=== PATIENT | male | born 1970 | race Caucasian/White ===

== ENCOUNTER 2017-05-26 09:15 | Emergency (ER) | payer OTHER ==
[~2017-05-26] VITALS: Ht 167.6 cm; Wt 70.0 kg
[~2017-05-26 09:15] MED LIST: LEVE100018 PO
[2017-05-26 09:25] VITALS: Ht 167.6 cm; Wt 70.0 kg
--- NOTE | 2017-05-26 09:44 | RADRPT ---
PROCEDURE: Chest Radiograph. CLINICAL INDICATION: Chest pain TECHNIQUE: Single frontal chest radiograph. COMPARISON: None available FINDINGS: The cardiomediastinal silhouette is within normal limits. No infiltrate or effusion is seen. Th e bones are intact. IMPRESSION: 1. Unremarkable chest radiograph. RPTAT: KK .Toby Bello MD, MD Date Time Electronically viewed and signed by .Toby Bello MD, on 05/26/2017 09:44 .B/
--- NOTE | 2017-05-26 10:04 | ERD ---
ER Documentation Chief Complaint Date/Time DATE: 05/26/17 TIME: 10:01 Chief Complaint BIB AMBULANCE DUE TO ETOH INTOXICATION, PT [id number] HPI Patient is a 46-year-old male with seizures who presents altered. Please note the history and physical exam is limited secondary to the patient's alcohol intoxication. The patient was brought in by ambulance. He was in line to get food at a [facility] and they said that he was too drunk. He admits to drinking 40 ounce beers. Upon review of old medical records he has multiple visits to the ER for alcohol intoxication and seizures. He has no other complaints. ROS All systems reviewed and are negative except as per history of present illness. Medications Home Meds Reported Medications Levetiracetam* (Keppra*) 1,000 Mg Tablet, 1000 MG PO BID, TAB 11/13/14 Allergies Allergies: Coded Allergies: No Known Drug Allergy (Verified Allergy, Unknown, 11/13/14) PMhx/Soc History of Surgery: No Anesthesia Reaction: No Hx Neurological Disorder: Yes (SEIZURE) Hx Respiratory Disorders: No Hx Cardiac Disorders: No Hx Psychiatric Problems: No Hx Miscellaneous Medical Probl: Yes (ETOH ABUSE) Hx Alcohol Use: Yes Hx Substance Use: Yes Hx Tobacco Use: Yes Smoking Status: Current every day smoker FmHx Family History: No diabetes Physical Exam Vitals Vital Signs Date Time Temp Pulse Resp B/P Pulse Ox O2 Delivery O2 Flow Rate FiO2 05/26/17 09:25 982.1 71 18 112/94 99 Physical Exam Const: Intoxicated Head: Atraumatic Eyes: Normal Conjunctiva ENT: Normal External Ears, Nose and Mouth. Neck: Full range of motion..~ No meningismus. Resp: Clear to auscultation bilaterally Cardio: Regular rate and rhythm, no murmurs Abd: Soft, non tender, non distended. Normal bowel sounds Skin: No petechiae or rashes Back: No midline or flank tenderness Ext: No cyanosis, or edema Neur: Awake and answers questions but intoxicated Procedures/MDM EKG read by me: Rate/Rhythm: Regular rate and rhythm at a normal rate Intervals: Normal Impression: No evidence of ischemia or arrhythmia Chest x-ray negative per radiology. Patient eloped prior to receiving a CT scan of the brain. Patient is a 46-year-old male who presents intoxicated. The patient admits to drinking beers and is answering questions appropriately. I want to get a CT scan of the brain to rule out intracranial hemorrhage but the patient eloped prior to receiving this CT of the brain. He was ambulatory and able to walk out under his own power. He can return for any worsening symptoms. At this point I feel that outpatient management is appropriate and that we did not need to call the police to bring him back to the hospital. Departure Diagnosis: Primary Impression: Alcoholic intoxication Complication of substance-induced condition: uncomplicated Qualified Code: F10.120 - Alcoholic intoxication, uncomplicated Condition: MANFRED Mccauley MD May 26, 2017 10:02
== END 2017-05-26 10:19 | disposition left against medical advice (07) ==
LOC: E/R 09:15
DX: F10.120 Alcohol abuse with intoxication, uncomplicated (principal); F17.210 Nicotine dependence, cigarettes, uncomplicated; R40.2142 Coma scale, eyes open, spontaneous, at arrival to emergency department; R40.2252 Coma scale, best verbal response, oriented, at arrival to emergency department; R40.2362 Coma scale, best motor response, obeys commands, at arrival to emergency department; R07.9 Chest pain, unspecified
CPT/HCPCS: 71010; 93005; Z7502

== ENCOUNTER 2017-05-26 15:02 | Emergency (ER) | payer SELFPAY ==
[~2017-05-26] VITALS: Ht 165.1 cm; Wt 70.0 kg
[2017-05-26 15:03] VITALS: Ht 165.1 cm; Wt 70.0 kg
== END 2017-05-26 16:17 | disposition left against medical advice (07) ==
LOC: E/R 15:02
DX: Z53.21 Procedure and treatment not carried out due to patient leaving prior to being seen by health care provider (principal)